=== PATIENT | female | born 1995 | race Caucasian/White ===

== ENCOUNTER 2020-02-05 11:34 | Emergency (ER) | payer BC, OTHER ==
[~2020-02-05] VITALS: Ht 162.5 cm; Wt 127.0 kg
[~2020-02-05 11:34] MED LIST: LOMOTIL 0.025 M1 TA1 PO; ZOFRAN ODT4 MG SL
== END 2020-02-05 13:17 | disposition short-term general hospital (02) ==
LOC: ED 11:34
DX: O62.9 Abnormality of forces of labor, unspecified (principal); O99.333 Smoking (tobacco) complicating pregnancy, third trimester; Z3A.39 39 weeks gestation of pregnancy; Z79.899 Other long term (current) drug therapy

== ENCOUNTER 2021-08-05 20:33 | Emergency (ER) | payer BC, OTHER ==
[~2021-08-05] VITALS: Wt 117.9 kg
[2021-08-05] MEDS ORDERED: SEPTDS PO (22:55)
[2021-08-05] MEDS ORDERED: IBUPROFEN600 MG PO (22:55)
== END 2021-08-05 23:12 | disposition home or self-care (01) ==
LOC: ED 20:33
DX: L08.82 Omphalitis not of newborn (principal)

== ENCOUNTER 2022-04-26 18:29 | Emergency (ER) | payer BC, OTHER ==
[~2022-04-26] VITALS: Ht 162.5 cm; Wt 122.0 kg
[~2022-04-26 18:29] MED LIST changes: +IBUPROFEN600 MG PO; +SEPTDS PO
[2022-04-26] MEDS ORDERED: Motrin,Rufen800 MG PO (22:36)
== END 2022-04-26 22:58 | disposition home or self-care (01) ==
LOC: ED 18:29
DX: S92.414A Nondisplaced fracture of proximal phalanx of right great toe, initial encounter for closed fracture (principal); S86.911A Strain of unspecified muscle(s) and tendon(s) at lower leg level, right leg, initial encounter; W10.8XXA Fall (on) (from) other stairs and steps, initial encounter; Y93.89 Activity, other specified; Y92.89 Other specified places as the place of occurrence of the external cause; Y99.8 Other external cause status

== ENCOUNTER 2025-09-06 13:58 | Emergency (ER) | payer OTHER ==
[~2025-09-06] VITALS: Ht 165.1 cm; Wt 125.6 kg
[~2025-09-06 13:58] MED LIST changes: +Motrin,Rufen800 MG PO
[2025-09-06 14:43] LABS: BILIRUBIN Negative (Negative); BLOOD Negative (Negative); CLARITY Cloudy (Clear); COLOR Yellow (Yellow); KETONE 2+ (Negative); LEUKO ESTERASE 3+ (Negative); NITRITE Positive (Negative); PH 5.5 (4.5-8.0); SPECIFIC GRAVITY 1.020 (1.001-1.030); UROBILINOGEN 1.0 E.U./dl (0.0-1.0)
[2025-09-06 15:00] LABS: BACTERIA 3+; EPITHELIAL CELLS 16-20; MUCOUS 1+; WBC 31-40 wbc/hpf (0-5)
[2025-09-06] MEDS ORDERED: METRONIDAZOLE500 M1 PO (17:01)
[2025-09-06] MEDS ORDERED: AZITHROMYCIN 250 MG TAB PO ONE ×2 (17:10→17:44)
[2025-09-06] MEDS ORDERED: metroNIDAZOLE 500 MG TAB PO ONE (17:10)
[2025-09-06] MEDS ORDERED: metroNIDAZOLE 500 MG TAB ONE (17:44)
== END 2025-09-06 17:47 | disposition home or self-care (01) ==
LOC: ED 13:58
PROVIDERS: Emergency Medicine
DX: Z20.2 Contact with and (suspected) exposure to infections with a predominantly sexual mode of transmission (principal); N39.0 Urinary tract infection, site not specified; F90.9 Attention-deficit hyperactivity disorder, unspecified type

== ENCOUNTER 2025-09-11 09:30 | Emergency (ER) | payer OTHER ==
[~2025-09-11] VITALS: Ht 165.1 cm; Wt 125.6 kg
[~2025-09-11 09:30] MED LIST changes: +METRONIDAZOLE500 M1 PO
[2025-09-11] MEDS ORDERED: CIPRO500 MG PO (10:02)
== END 2025-09-11 10:11 | disposition home or self-care (01) ==
LOC: ED 09:30
DX: N39.0 Urinary tract infection, site not specified (principal); Z64.0 Problems related to unwanted pregnancy; F90.9 Attention-deficit hyperactivity disorder, unspecified type

== ENCOUNTER 2025-09-15 16:37 | Emergency (ER) | payer OTHER ==
[~2025-09-15] VITALS: Ht 165.1 cm; Wt 122.5 kg
[~2025-09-15 16:37] MED LIST changes: +CIPRO500 MG PO
[2025-09-15] MEDS ORDERED: Ondansetron Hydrochloride 4 MG/2 ML VIAL IV ONE (17:15)
[2025-09-15] MEDS ORDERED: SODIUM CHLORIDE 0.9% 500 ML IV ONE (17:15)
[2025-09-15 17:35] LABS: BASO # 0.0 10*3/uL (0.0-0.1); BASO % 0.3 % (0.0-1.0); EOS # 0.1 10*3/uL (0.0-0.4); EOS % 1.8 % (1.0-4.0); MEAN CELL VOLUME 87.6 fl (81.0-99.0); MEAN CORPUSCULAR HGB 28.1 pg (27.0-31.0); MEAN PLATELET VOLUME 10.1 fl (9.6-12.3); MONO # 0.6 10*3/uL (0.1-1.0); MONO % 9.9 % (3.0-9.0); NEUT # 3.7 10*3/uL (2.3-7.9); NEUT % 61.5 % (47.0-73.0); NUCLEATED RED BLOOD CELL 0.0 % (0.0-0.0); NUCLEATED RED BLOOD CELL 0.0 10*3/uL (0.0-0.0); PLATELET COUNT AUTOMATED 310 10*3/uL (130-400); RED CELL DISTRI WIDTH 13.2 % (0-14.5)
[2025-09-15 18:08] LABS: BILIRUBIN Negative (Negative); BLOOD Negative (Negative); CLARITY Clear (Clear); COLOR Yellow (Yellow); KETONE Negative (Negative); LEUKO ESTERASE Negative (Negative); NITRITE Negative (Negative); PH 7.0 (4.5-8.0); SPECIFIC GRAVITY 1.025 (1.001-1.030); UROBILINOGEN 1.0 E.U./dl (0.0-1.0)
[2025-09-15 18:11] LABS: BUN 13 mg/dl (9-23); SGPT/ALT 20 U/L (5-49)
[2025-09-15 18:21] LABS: BACTERIA 3+; RBC 0-2 rbc/hpf (0-2); WBC 0-2 wbc/hpf (0-5)
[2025-09-15] MEDS ORDERED: Ondansetron4 MG PO (18:45)
[2025-09-15] MEDS ORDERED: REGLAN10 M1 PO (18:45)
== END 2025-09-15 19:00 | disposition home or self-care (01) ==
LOC: ED 16:37
PROVIDERS: Emergency Medicine
DX: A08.4 Viral intestinal infection, unspecified (principal); K92.1 Melena; F90.9 Attention-deficit hyperactivity disorder, unspecified type